=== PATIENT | male | born 1950 | race Caucasian/White ===

== ENCOUNTER 2024-05-02 13:58 | Outpatient (RCR) | payer OTHER, BC, MEDICARE, SELFPAY | END 2024-05-02 23:59 | disposition home or self-care (01) | LOC: RPT 13:58 | PROVIDERS: ATTENDING PHYSICIAN Specialist; FAMILY PHYSICIAN Family Medicine | DX: Z47.1 Aftercare following joint replacement surgery (principal); Z96.653 Presence of artificial knee joint, bilateral; M54.16 Radiculopathy, lumbar region; Z96.641 Presence of right artificial hip joint; Z96.642 Presence of left artificial hip joint; Z73.6 Limitation of activities due to disability | CPT/HCPCS: 97010; 97110; 97112; 97162; 97530 ==

== ENCOUNTER 2024-06-02 14:09 | Outpatient (RCR) | payer OTHER, BC, MEDICARE, SELFPAY | END 2024-06-02 23:59 | disposition home or self-care (01) | LOC: RPT 14:09 | PROVIDERS: ATTENDING PHYSICIAN Specialist; FAMILY PHYSICIAN Family Medicine | DX: M54.16 Radiculopathy, lumbar region (principal); Z73.6 Limitation of activities due to disability | CPT/HCPCS: 97010; 97110; 97112 ==

== ENCOUNTER 2024-07-02 13:38 | Outpatient (RCR) | payer OTHER, BC, MEDICARE, SELFPAY | END 2024-07-02 23:59 | disposition home or self-care (01) | LOC: RPT 13:38 | PROVIDERS: ATTENDING PHYSICIAN Specialist; FAMILY PHYSICIAN Family Medicine | DX: M54.16 Radiculopathy, lumbar region (principal); Z73.6 Limitation of activities due to disability; M62.81 Muscle weakness (generalized); Z96.653 Presence of artificial knee joint, bilateral; Z96.643 Presence of artificial hip joint, bilateral | CPT/HCPCS: 97010; 97110; 97112 ==

== ENCOUNTER → 2024-09-08 11:28 | Outpatient (REF) | payer BC, SELFPAY | LOC: HWRCS 11:28 | PROVIDERS: ATTENDING PHYSICIAN Internal Medicine Cardiovascular Disease; FAMILY PHYSICIAN Family Medicine | DX: R07.89 Other chest pain (principal) | CPT/HCPCS: 93306 ==

== ENCOUNTER → 2024-09-11 11:24 | Outpatient (REF) | payer BC, SELFPAY | LOC: DHCBC/DCA 11:24 | PROVIDERS: ATTENDING PHYSICIAN Internal Medicine Cardiovascular Disease; FAMILY PHYSICIAN Family Medicine | DX: R07.89 Other chest pain (principal) | CPT/HCPCS: 78452; 93017; A9500 ==

== ENCOUNTER 2025-08-26 09:26 | Emergency (ER) | payer BC, SELFPAY ==
[2025-08-26 09:46] VITALS: BP 132/67
--- NOTE | 2025-08-26 10:57 | ED.GENMED ---
History of Present Illness
General
Chief Complaint: Skin Problem
Source: patient
Exam Limitations: none
Time Seen by Provider: 08/26/25 10:42
History of Present Illness
History of Present Illness:
See MDM
Past History
Past History
ED Past Medical History: HTN
ED Past Surgical History: Orthopedic
Social History
Employment: Employed
Phy Exam
Physical Exam
Physical Exam:
See MDM
Course
Orders/Labs/Results
Orders:
Orders
08/26/25 10:57
Dexamethasone Pf [Decadron] 10 mg PO NOW STA
Vital Signs
Initial and Last Documented VS:
Initial Vital Signs
Temp Pulse Resp BP Pulse Ox
98.3 F 91 16 132/67 98
08/26/25 09:46 08/26/25 09:46 08/26/25 09:46 08/26/25 09:46 08/26/25 09:46
Last Documented Vital Signs
Temp Pulse Resp BP Pulse Ox
98.3 F 91 16 132/67 98
08/26/25 09:46 08/26/25 09:46 08/26/25 09:46 08/26/25 09:46 08/26/25 10:58
MDM/Problems Addressed
Differential Diagnosis Includes:
Note:
CHIEF COMPLAINT(S)
Facial swelling.
HISTORY OF PRESENT ILLNESS
The patient is a 75-year-old male presenting with facial swelling that began in the middle of the night. He reports waking up, going to the bathroom, and noticing the swelling. He states, 'I woke up with it.' The patient does not have any cuts,
tooth pain, or any other pain inside his mouth. He denies any new medications or changes in medication. The patient is able to move his facial muscles including smiling and lifting his eyebrows without weakness, indicating preserved facial function.
He denies his lips feeling tight but confirms they appear larger than normal. The patient is on lisinopril, a medication known to potentially cause angioedema, and has been taking it for an extended period without prior issues.
CHRONIC MEDICAL CONDITIONS SIGNIFICANTLY AFFECTING CARE
Chronic conditions affecting care: Hypertension managed with lisinopril.
SOCIAL DETERMINANTS AFFECTING HEALTH
The patient reports working a full-time job.
PLAN
Discontinue lisinopril due to suspicion of angioedema. Initiate amlodipine for blood pressure management as an alternative, starting with a low dose. Prescribe a course of steroids to address the facial swelling. Advise the patient to follow up with
Dr. Ayaz Farrell, his senior support engineer, for further management of blood pressure medication and to verify potential lisinopril-induced angioedema. The patient is also advised on the use of steroids to reduce swelling and return facial appearance to
normal.
PHYSICAL EXAM
General: Alert, no acute distress.
Skin: Warm, dry.
Head: Normocephalic, atraumatic
Neck: Appears supple, trachea midline.
Eyes, Ears, Nose, Mouth, and Throat: Moist mucous membranes. Mild swelling of right upper and right lower lip. No tongue involvement. No abrasions or cuts noted. Posterior pharynx clear
Cardiovascular: No signs of cyanosis
Respiratory: Respirations are non-labored.
Abdomen: Non-distended
Musculoskeletal: No deformities
Neurological: No focal neurological deficit observed.
Psychiatric: Cooperative, appropriate mood and affect.
DIFFERENTIAL DIAGNOSIS
The Differential Diagnosis includes, in no particular order and is not limited to:
- Angioedema
- Doland Palsy
- Allergic Reaction
- Drug-induced Edema
- Facial Palsy
- Early Stroke
- Facial Trauma
- Infection
- Inflammatory Response
- Neurological Disorder
SUMMARY OF ENCOUNTER
The patient presented with facial swelling suspected to be angioedema, potentially caused by lisinopril, which he has been taking for hypertension. A comprehensive plan was discussed to discontinue lisinopril and replace it with amlodipine. A course
of steroids was prescribed to manage the swelling. No laboratory or imaging tests were ordered, as the diagnosis is clinical.
DISPOSITION
Discharge with follow-up recommendation.
FOLLOW-UP INSTRUCTIONS
The patient is advised to contact Dr. Ayaz Farrell, his senior support engineer, or his primary care provider to discuss further blood pressure management. Monitoring the response to steroids and changes in blood pressure medication is also recommended.
MEDICATION RECONCILIATION
Discontinue lisinopril. Prescribe amlodipine and a course of steroids.
MEDICAL DECISION MAKING
-Complexity of Data Reviewed: Chronic conditions affecting care: Hypertension managed with lisinopril.
-Data:
Category 1 Tests and documents:
No external records were reviewed, discussions focused on the clinical presentation and medication changes.
Category 2 Assessment requiring an independent historian(s):
The patient provided his own history.
Category 3 Discussion of management or test interpretation:
Discussion included the potential side effects of lisinopril and the alternative use of amlodipine, as well as the initiation of steroid therapy to manage facial swelling.
-Risk:
Prescription medication was prescribed: Amlodipine and steroids were prescribed to manage the patients condition.
Care significantly affected by social determinants of health: The patient is employed full-time, which could impact follow-up care and medication adherence.
Disposition:
SUMMARY OF ENCOUNTER
The patient, a 75-year-old male, presented with facial swelling, suspected to be angioedema potentially caused by lisinopril, which he has been taking for hypertension. The patient denied any new medications or changes in his current regimen. We
discussed the possibility of lisinopril causing mild angioedema and the plan to discontinue its use. Given that lisinopril was prescribed as a combination drug with hydrochlorothiazide, the decision was made to switch the lisinopril to amlodipine
and continue hydrochlorothiazide separately. A short course of steroids was also prescribed to address the swelling.
DISPOSITION
Discharge.
PLAN
Discontinue lisinopril due to suspected angioedema. Initiate amlodipine for hypertension management, and continue hydrochlorothiazide. Prescribe a short course of steroids to manage facial swelling. Instruct the patient to follow up with his
senior support engineer, Dr. Ayaz Farrell, for further management and to verify the potential lisinopril-induced angioedema.
FOLLOW-UP INSTRUCTIONS
The patient is advised to contact his senior support engineer, Dr. Ayaz Farrell, to discuss further blood pressure management and potential lisinopril-induced angioedema.
MEDICATION RECONCILIATION
Discontinue lisinopril. Prescribe amlodipine and hydrochlorothiazide. Prescribe a short course of steroids.
MEDICAL DECISION MAKING
-Number and Complexity of Problems Addressed: Chronic conditions affecting care include hypertension managed with lisinopril. Differential diagnosis includes angioedema, allergic reaction, and drug-induced edema.
-Data:
Category 1: No external records were reviewed or additional tests ordered.
Category 3: Discussion of management with healthcare provider includes a plan to switch from lisinopril to amlodipine and the initiation of steroids.
-Risk: Prescription drug management involved with the prescription of amlodipine and steroids. Care significantly affected by social determinants of health as the patient is employed full-time, which might impact follow-up care and medication
adherence.
DIAGNOSIS
1. Angioedema, unspecified (ICD-10: T78.3)
2. Essential Hypertension (ICD-10: I10)
*Pulse Oximetry
SaO2: 98
Oxygen Mode of Delivery: Room air
Patient hypoxic: no
*Critical Care Note
Total Time (30-74mins, 75-104mins- exclusive of procedures): Not Applicable
ED Attending Note
-
Portions of this chart may have been created with voice recognition software.� Occasional wrong word or��sound alike� substitutions may have occurred due to the inherent limitations of voice recognition software.
Discharge Plan
Departure
Patient Disposition: Home (Routine Discharge)
Date of Disposition: 08/26/25
Time of Disposition: 11:06
Patient with high blood pressure during this ER visit?: No
Discharge Problem:
Angioedema
Instructions: Angioedema caused by DILAN inhibitor medicines
Prescriptions:
New
prednisone 20 mg tablet
40 mg PO DAILY Qty: 10 0RF
amlodipine 5 mg tablet
5 mg PO DAILY Qty: 30 0RF
hydrochlorothiazide 25 mg tablet
25 mg PO DAILY Qty: 30 0RF
No Action
atorvastatin 10 MG tablet
10 mg PO DAILY
mupirocin 1 APPLIC ointment
1 applic intranasal BID Qty: 1 0RF
Patient Comments:
Not per pt.
pt states started 10/17/20 as ordered last dose at home 10/19 2199 will give this am
Rx Instructions:
Pt has from prior NEO.
sennosides [senna] 1 TABLET tablet
2 tab PO BID 0RF
aspirin 325 MG tablet
325 mg PO DAILY 0RF
Rx Instructions:
Take daily x4 weeks for blood clot prevention.
famotidine 20 MG tablet
20 mg PO HS Qty: 30 0RF
Rx Instructions:
Take nightly while on Meloxicam and Aspirin
magnesium hydroxide 30 ML suspension
30 ml PO DAILYPRN PRN (Reason: constipation) 0RF
docusate sodium 100 MG capsule
100 mg PO BID 0RF
oxycodone [OxyContin] 10 MG tablet,oral only,ext.rel.12 hr
10 mg PO Q12 Qty: 15 0RF
Rx Instructions:
1 tab every 12 hours x5 days, then 1 tab once daily
dx joint replacement, acute on chronic pain
meloxicam 15 MG tablet
15 mg PO DAILY Qty: 14 0RF
Rx Instructions:
Take with food.
Do not take within 2 hours of Aspirin.
hydromorphone 2 MG tablet
2 mg PO Q4HPRN PRN (Reason: mod-severe breakthrough pain) Qty: 35 0RF
Rx Instructions:
1 tab moderate pain or 2 if pain severe
dx total joint
ongoing therapy
cefadroxil 500 MG capsule
500 mg PO Q12H Qty: 14 0RF
Rx Instructions:
Start night of discharge and take every 12 hours until finished.
Saccharomyces boulardii 250 MG capsule
250 mg PO BID Qty: 30 0RF
Rx Instructions:
Over the counter. Take twice daily while on antibiotic.
If unavailable, choose another probiotic.
acetaminophen 500 MG tablet
1,000 mg PO Q6H PRN (Reason: pain) Qty: 60 0RF
Rx Instructions:
Do not exceed >4000 mg daily.
diazepam [Valium] 10 MG tablet
10 mg PO DAILYPRN PRN (Reason: muscle spasm/sleep) Qty: 0 0RF
Patient Comments:
pt states he took 5mg
Rx Instructions:
Caution with both Dilaudid/Oxycontin - can cause drowsiness.
Only take as needed.
lisinopril-hydrochlorothiazide 1 EACH tablet
1 tab PO DAILY Qty: 0 0RF
Rx Instructions:
Hold if systolic blood pressure <130 while on Dilaudid and Oxycontin.
buprenorphine-naloxone [Suboxone] 1 EACH film
0.25 film sublingual Daily Qty: 0 0RF
Rx Instructions:
DO NOT RESUME UNTIL OFF BOTH DILAUDID AND OXYCONTIN AND OK PER PRESCRIBER - Dr. Layo Barreto
saw-vit E-sod [id number] [Prostate Health] 1 EACH tablet
1 ea PO DAILY Qty: 0 0RF
Rx Instructions:
Resume in 1 week
Stand Alone Forms: Return to Work
Activity Restrictions/Additional Instructions:
Please return for any worsening symptoms.
You may return at any time if you have further concerns.
Please follow up with your doctor at the first available appointment, preferably this week.
As we discussed, the swelling could be a reaction caused by the lisinopril.
Please stop the lisinopril altogether. I wrote for a different blood pressure medicine called amlodipine. Since your lisinopril was a combination medicine with hydrochlorothiazide, I also wrote a prescription for hydrochlorothiazide by itself.
Thank you for choosing [facility].
Interventions
Interventions:
*General Assessment Last Done: 08/26/25 09:46
*Neglect/Abuse Screening Last Done: 08/26/25 09:46
*ED COVID-19 Vaccine History Last Done: 08/26/25 11:12
*ED Influenza Vaccine History Last Done: 08/26/25 11:12
*Risk Screen - Suicide (C-SSRS) Last Done: 08/26/25 09:46
*Nursing Disposition Last Done: 08/26/25 11:28
ED-Skin Assessment Last Done: 08/26/25 11:28
Discharge Date and Time
Print Language: FAROESE
[2025-08-26] MEDS: DECADRON 10 MG PO (11:04)
== END 2025-08-26 11:32 | disposition home or self-care (01) ==
LOC: EMR 09:26
PROVIDERS: EMERGENCY PHYSICIAN Student in an Organized Health Care Education/Training Program; FAMILY PHYSICIAN Family Medicine
DX: T78.3XXA Angioneurotic edema, initial encounter (principal); I10 Essential (primary) hypertension; R22.0 Localized swelling, mass and lump, head
CPT/HCPCS: 99283